=== PATIENT | male | born 1985 | race Caucasian/White ===

== ENCOUNTER 2017-05-01 10:06 | Emergency (ER) | payer MEDICAID ==
[2017-05-01 11:24] VITALS: BP 149/96
== END 2017-05-01 11:22 | disposition home or self-care (01) ==
LOC: ED 10:06 → EDSEX 10:06 → ED 11:22
DX: S62.610A Displaced fracture of proximal phalanx of right index finger, initial encounter for closed fracture (principal); W18.30XA Fall on same level, unspecified, initial encounter; Y93.89 Activity, other specified; Y92.89 Other specified places as the place of occurrence of the external cause; Y99.8 Other external cause status
CPT/HCPCS: A4570; Q0092